=== PATIENT | female | born 1935 | race Caucasian/White ===

== ENCOUNTER → 2018-08-01 | Outpatient (CLI) | payer MEDICARE, BC ==
--- NOTE | 2018-08-01 14:40 | Diagnostic Imaging Report ---
History: Low back pain. History of polio. Comparison studies: None Technique: Axial images were obtained from T11 through the sacrum. Coronal and sagittal images reconstructed from the axial data. Intravenous contrast: None Dose modulation, iterative reconstruction, and/or weight based adjustment of the mA/kV was utilized to reduce the radiation dose to as low as reasonably achievable. Findings: Number of non-rib bearing vertebral bodies: 5 Alignment: Grade 1 anterolisthesis of L4 over L5 of approximately 0.5 cm. Dextroscoliosis centered at L3-4 with correction at T12-L1 and L5-S1 with mild levoscoliosis at these levels. Soft tissues: No paraspinal abnormalities. Atherosclerotic calcifications of the abdominal aorta and branches Paraspinal muscles: Fatty infiltration of the paraspinal musculature secondary to moderate atrophy Vertebrae: No acute fractures, infection or neoplasm. Degenerative changes: At T12-L1 disc degeneration with decreased intervertebral space, vacuum disc phenomenon and endplate sclerotic changes towards the right. Decreased interspinous space from L3 through L5 with spinous processes sclerotic changes, secondary to Baastrup's phenomenon L1-L2: Patent canal and foramina L2-L3: Disc degeneration with decreased intervertebral space and vacuum disc phenomenon. Mild diffuse disc bulge and mild facet hypertrophy results in no significant canal stenosis and mild left foraminal narrowing L3-L4: Disc degeneration with decreased intervertebral space and vacuum disc phenomenon and endplate sclerosis more prominent in the central and left aspect of the intervertebral disc. Asymmetric left disc bulge and moderate facet hypertrophy results in severe canal stenosis, severe left and mild right foraminal L4-L5: Disc degeneration with decreased intervertebral space and vacuum disc phenomenon and endplate sclerosis more prominent in the central left lateral aspect. Asymmetric left disc bulge, moderate right and severe left facet hypertrophy results in severe canal stenosis and mild right and severe left foraminal narrowing L5-S1: Disc degeneration with decreased intervertebral space and vacuum disc phenomenon are prominent in the central right lateral aspect. Diffuse disc bulge, severe right and mild left facet hypertrophy results in moderate canal stenosis and severe right and mild left foraminal narrowing Sacroiliac joints: Mild degenerative changes. IMPRESSION: 1. Severe canal stenosis and severe left foraminal narrowing at L3-L4 and L4-L5 secondary to degenerative changes and dextroscoliosis. 2. Severe degenerative right foraminal narrowing and moderate canal stenosis at L5-S1. 3. Moderate to severe disc degeneration as described above. 4. Dextroscoliosis centered at L3-4 with correction at T12-L1 and L5-S1 with mild levoscoliosis at these levels. Other degenerative changes as described above. Signed by: DR James Robbins M.D. on 08/01/2018 2:37 PM
== END ==
LOC: CT 07:26
PROVIDERS: ATTEND Emergency Medicine
DX: M54.5 Low back pain (principal)
CPT/HCPCS: 72131

== ENCOUNTER → 2019-12-03 | Outpatient (CLI) | payer MEDICARE, BC ==
--- NOTE | 2019-12-03 12:08 | Diagnostic Imaging Report ---
Exam: Right hip radiographs - 2 views; Left hip radiographs - 2 views History: Osteoarthritis. Comparison: None. Findings: There are moderate degenerative changes of bilateral hips with joint space narrowing and subchondral sclerosis. No evidence of acute fracture, malalignment, or soft tissue abnormality. Impression: Moderate bilateral hip osteoarthritis. Signed by: Dr. Yong Mcclelland MD on 12/03/2019 12:06 PM
--- NOTE | 2019-12-03 15:06 | Diagnostic Imaging Report ---
History: Intractable back pain. Comparison studies: CT of the lumbar spine 08/01/2018 Technique: Axial images were obtained from T11 through the sacrum. Coronal and sagittal images reconstructed from the axial data. Intravenous contrast: None Dose modulation, iterative reconstruction, and/or weight based adjustment of the mA/kV was utilized to reduce the radiation dose to as low as reasonably achievable. Findings: Number of non-rib bearing vertebral bodies: 5 Alignment: Grade 1 anterolisthesis of L4 over L5 of approximately 0.5 cm., Stable. S-shaped scoliosis with levocurvature at T12-L1 and corrective dextrocurvature centered at L4, stable. Soft tissues: No paraspinal abnormalities. Atherosclerotic calcifications of the abdominal aorta and branches, stable Paraspinal muscles: Fatty infiltration of the paraspinal musculature secondary to moderate atrophy, stable. Vertebrae: No acute fractures, infection or neoplasm. Degenerative changes: At T12-L1: Disk degeneration with decreased intervertebral space, and endplate sclerotic changes towards the right, mildly progressed. Patent canal and mild right foraminal narrowing, stable. Decreased interspinous space from L3 through L5 with spinous processes sclerotic changes, secondary to Baastrup's phenomenon, stable. L1-L2: Patent canal and foramina, stable. L2-L3: Disc degeneration with decreased intervertebral space and vacuum disc phenomenon. Mild diffuse disc bulge and mild facet hypertrophy results in no significant canal stenosis and mild left foraminal narrowing, stable L3-L4: Disc degeneration with decreased intervertebral space, vacuum disc phenomenon and endplate sclerosis more prominent in the central and left aspect of the intervertebral disc, stage. Asymmetric left disc bulge and moderate facet hypertrophy results in severe canal stenosis, severe left and mild right foraminal, stable. L4-L5: Disc degeneration with decreased intervertebral space, vacuum disc phenomenon and endplate sclerosis more prominent in the central left lateral aspect. Asymmetric left disc bulge, moderate right and severe left facet hypertrophy results in severe canal stenosis, mild right and severe left foraminal narrowing, stable L5-S1: Disc degeneration with decreased intervertebral space and vacuum disc phenomenon more prominent in the central right lateral aspect, stable. Diffuse disc bulge, severe right and mild left facet hypertrophy results in moderate canal stenosis and severe right and mild left foraminal narrowing, stable Sacroiliac joints: Mild degenerative changes. IMPRESSION: 1. No acute lumbar spine abnormality. 2. Grossly stable degenerative changes of the lumbar spine with severe degenerative canal stenosis and severe left foraminal narrowing at L3-L4 and L4-L5. 3. Severe degenerative right foraminal narrowing and moderate canal stenosis at L5-S1, stable. 4. Moderate to severe disc degeneration as described above, grossly stable. 5. Stable S-shaped scoliosis with levoscoliosis centered at T12-L1 and corrective dextroscoliosis centered at L4. Signed by: DR James Robbins M.D. on 12/03/2019 3:04 PM
== END ==
LOC: CT 10:58
PROVIDERS: ATTEND Emergency Medicine
DX: M16.0 Bilateral primary osteoarthritis of hip (principal); M54.5 Low back pain
CPT/HCPCS: 72131; 73522

== ENCOUNTER → 2021-06-08 | Outpatient (CLI) | payer MEDICARE, BC | LOC: RAD 14:58 | PROVIDERS: ATTEND Emergency Medicine | DX: S00.83XA Contusion of other part of head, initial encounter (principal); M25.511 Pain in right shoulder; M25.562 Pain in left knee; W19.XXXA Unspecified fall, initial encounter | CPT/HCPCS: 70486 ==

== ENCOUNTER → 2021-06-11 | Outpatient (CLI) | payer MEDICARE, BC | LOC: CT 11:58 | PROVIDERS: ATTEND Emergency Medicine | DX: M25.511 Pain in right shoulder (principal) ==